=== PATIENT | female | born 1945 | race Caucasian/White ===

== ENCOUNTER 2016-11-23 00:23 | Inpatient (IN) ==
[2016-11-23] MEDS ORDERED: ANTIVERT PO ONE (03:07)
[2016-11-23] MEDS ORDERED: ZOFRAN ODT PO ONE (03:08)
[2016-11-23] MEDS ORDERED: NS 1,000 ML IV ONE (03:10)
[2016-11-23] MEDS ORDERED: PHENERGAN INJ ONE (03:14)
[2016-11-23] MEDS ORDERED: NS INJ ONE (03:14)
[2016-11-23] MEDS ORDERED: CATAPRES PO ONE (03:30)
[2016-11-23 03:50] LABS: AGAP 11; ALKALINE PHOSPHATASE 78 U/L (32-104); BUN 10 mg/dL (8-22); CALCIUM 9.1 mg/dL (8.8-10.2); CHLORIDE 102 mmol/L (98-107); COSMO 282; GOT 30 U/L (10-30); GPT 29 U/L (10-36); POTASSIUM 3.6 mmol/L (3.5-5.1); SODIUM 141 mmol/L (136-145); TCO2 28 mmol/L (25-35); TOTAL PROTEIN 6.8 g/dL (6.3-8.3)
[2016-11-23 04:01] LABS: BASO% 0.2 % (0.0-0.8); HEMATOCRIT 38.8 % (37.0-47.0); HEMOGLOBIN 12.5 g/dL (12.0-16.0); IMM GRAN# 0.03 X1000 (0.0-0.04); IMM GRAN% 0.3 % (0.0-0.5); LYMPH# 0.77 X1000 (1.2-3.4); MCH 28.7 PG (27-31); MCHC 32.2 g/dL (33-37); MCV 89.2 FL (81-99); MONO# 0.44 X1000 (0.11-0.59); NEUT% 88.5 % (42.2-75.2); PLT 198 X1000 (130-400); RBC 4.35 XMIL (4.2-5.4)
[2016-11-23 04:02] LABS: MANUAL DIFF NEEDED? NO
[2016-11-23] MEDS: HYDROCHLOROTHIAZIDE PO SCH (08:54)
[2016-11-23] MEDS: PAXIL PO SCH (08:54)
[2016-11-23] MEDS: DIOVAN PO SCH (08:54)
[2016-11-23] MEDS: ANTIVERT PO PRN ×2 (10:23→18:40)
[2016-11-23] MEDS: SOLU-MEDROL IV SCH ×2 (11:39→22:13)
[2016-11-23] MEDS: NS 1,000 ML IV SCH ×2 (11:39→23:23)
[2016-11-23] MEDS: KLONOPIN PO SCH (21:14)
[2016-11-23] MEDS: DESYREL PO SCH (21:14)
[2016-11-24] MEDS ORDERED: TYLENOL PO ONE (05:03)
[2016-11-24] MEDS: ANTIVERT PO PRN (05:36)
[2016-11-24] MEDS: PAXIL PO SCH (08:49)
[2016-11-24] MEDS: DIOVAN PO SCH (08:49)
[2016-11-24] MEDS: HYDROCHLOROTHIAZIDE PO SCH (08:49)
[2016-11-24] MEDS: SOLU-MEDROL IV SCH ×2 (10:26→22:13)
[2016-11-24] MEDS ORDERED: ZOFRAN IV PRN (10:31)
[2016-11-24] MEDS: DOXYCYCLINE PO SCH ×2 (11:33→22:13)
[2016-11-24] MEDS: ROCEPHIN 1 GM in NS 50 ML IV SCH (11:34)
[2016-11-24] MEDS: DESYREL PO SCH (22:12)
[2016-11-24] MEDS: KLONOPIN PO SCH (22:12)
[2016-11-25] MEDS: PAXIL PO SCH (08:24)
[2016-11-25] MEDS: HYDROCHLOROTHIAZIDE PO SCH (08:24)
[2016-11-25] MEDS: DIOVAN PO SCH (08:25)
[2016-11-25] MEDS: DOXYCYCLINE PO SCH ×2 (08:25→20:59)
[2016-11-25] MEDS: ROCEPHIN 1 GM in NS 50 ML IV SCH (10:49)
[2016-11-25] MEDS: SOLU-MEDROL IV SCH ×2 (10:49→22:32)
[2016-11-25] MEDS: KLONOPIN PO SCH (20:59)
[2016-11-25] MEDS: DESYREL PO SCH (20:59)
[2016-11-26] MEDS: CATAPRES PO SCH ×2 (08:51→20:04)
[2016-11-26] MEDS: DIOVAN PO SCH (08:51)
[2016-11-26] MEDS: HYDROCHLOROTHIAZIDE PO SCH (08:51)
[2016-11-26] MEDS: DOXYCYCLINE PO SCH ×2 (08:52→20:04)
[2016-11-26] MEDS: PAXIL PO SCH (08:52)
[2016-11-26] MEDS ORDERED: TYLENOL PO PRN (10:15)
[2016-11-26] MEDS: SOLU-MEDROL IV SCH (10:26)
[2016-11-26] MEDS: ANTIVERT PO PRN (10:26)
[2016-11-26] MEDS: ROCEPHIN 1 GM in NS 50 ML IV SCH (10:27)
[2016-11-26] MEDS: KLONOPIN PO SCH (20:04)
[2016-11-26] MEDS: DESYREL PO SCH (20:04)
[2016-11-26] MEDS ORDERED: SOLU-MEDROL IV SCH (22:30)
[2016-11-26] MEDS: ANTIVERT PO SCH (22:34)
[2016-11-27 06:07] LABS: AGAP 7; BUN 20 mg/dL (8-22); CALCIUM 8.9 mg/dL (8.8-10.2); CHLORIDE 99 mmol/L (98-107); COSMO 282; POTASSIUM 3.5 mmol/L (3.5-5.1); SODIUM 139 mmol/L (136-145); TCO2 33 mmol/L (25-35)
[2016-11-27 06:16] LABS: HEMATOCRIT 37.9 % (37.0-47.0); HEMOGLOBIN 12.2 g/dL (12.0-16.0); IMM GRAN# 0.03 X1000 (0.0-0.04); IMM GRAN% 0.3 % (0.0-0.5); LYMPH# 0.82 X1000 (1.2-3.4); LYMPH% 7.1 % (20.5-51.1); MANUAL DIFF NEEDED? YES; MCH 28.7 PG (27-31); MCHC 32.2 g/dL (33-37); MCV 89.2 FL (81-99); MONO# 0.49 X1000 (0.11-0.59); MONO% 4.3 % (1.7-9.3); MPV 12.9 FL (7.4-10.4); NEUT% 88.3 % (42.2-75.2); PLT 191 X1000 (130-400); RBC 4.25 XMIL (4.2-5.4)
[2016-11-27 07:04] LABS: BANDS 1 % (0-1); LYMPHS 7 % (21-51); MONO 1 % (1-9)
[2016-11-27] MEDS: PAXIL PO SCH (08:59)
[2016-11-27] MEDS: CATAPRES PO SCH ×2 (08:59→20:38)
[2016-11-27] MEDS: HYDROCHLOROTHIAZIDE PO SCH (08:59)
[2016-11-27] MEDS: DOXYCYCLINE PO SCH ×2 (08:59→20:38)
[2016-11-27] MEDS: ANTIVERT PO SCH ×2 (09:00→20:38)
[2016-11-27] MEDS: DIOVAN PO SCH (09:01)
[2016-11-27] MEDS: ROCEPHIN 1 GM in NS 50 ML IV SCH (11:44)
[2016-11-27] MEDS: DESYREL PO SCH (20:38)
[2016-11-27] MEDS: NORVASC PO SCH (20:38)
[2016-11-27] MEDS: KLONOPIN PO SCH (20:38)
[2016-11-28 06:03] LABS: MANUAL DIFF NEEDED? NO
[2016-11-28 06:09] LABS: BASO% 0.1 % (0.0-0.8); EOS# 0.09 X1000 (0.0-0.7); EOS% 1.3 % (0.0-10.0); HEMATOCRIT 39.4 % (37.0-47.0); HEMOGLOBIN 12.5 g/dL (12.0-16.0); IMM GRAN% 1.4 % (0.0-0.5); LYMPH# 2.11 X1000 (1.2-3.4); LYMPH% 29.6 % (20.5-51.1); MCH 28.5 PG (27-31); MCHC 31.7 g/dL (33-37); MONO# 0.44 X1000 (0.11-0.59); MONO% 6.2 % (1.7-9.3); MPV 12.7 FL (7.4-10.4); NEUT% 61.4 % (42.2-75.2); PLT 188 X1000 (130-400); RBC 4.38 XMIL (4.2-5.4)
[2016-11-28 06:29] LABS: AGAP 7; BUN 20 mg/dL (8-22); CALCIUM 8.5 mg/dL (8.8-10.2); CHLORIDE 101 mmol/L (98-107); COSMO 283; POTASSIUM 3.1 mmol/L (3.5-5.1); SODIUM 141 mmol/L (136-145); TCO2 33 mmol/L (25-35)
[2016-11-28] MEDS: CATAPRES PO SCH (08:11)
[2016-11-28] MEDS: DOXYCYCLINE PO SCH (08:12)
[2016-11-28] MEDS: ANTIVERT PO SCH (08:12)
[2016-11-28] MEDS: NORVASC PO SCH (08:12)
[2016-11-28] MEDS: DIOVAN PO SCH (08:12)
[2016-11-28] MEDS: PAXIL PO SCH (08:12)
[2016-11-28] MEDS: HYDROCHLOROTHIAZIDE PO SCH (08:13)
[2016-11-28] MEDS ORDERED: KLOR-CON PO ONE (08:42)
[2016-11-28] MEDS ORDERED: DULCOLAX PR ONE (11:07)
[2016-11-28] MEDS ORDERED: MIRALAX PO ONE (11:08)
[2016-11-28 12:23] VITALS: BP 105/63
== END 2016-11-28 14:35 | disposition home health service (06) ==
LOC: P.MEDSURG 00:23 → P.ED 00:23 → SUATTDRO 11-24 08:00 → MERGE 11-24 08:00 → P.MEDSURG 11-27 18:36
PROVIDERS: ATTEND Internal Medicine